=== PATIENT | female | born 1995 | race Caucasian/White ===

== ENCOUNTER → 2018-03-13 | Outpatient (CLI) | payer OTHER, BC | LOC: M LRY 14:31 | PROVIDERS: ATTEND Physician Assistant | DX: J01.10 Acute frontal sinusitis, unspecified (principal); Z53.8 Procedure and treatment not carried out for other reasons ==

== ENCOUNTER 2022-10-15 12:47 | Emergency (ER) | payer BC, OTHER ==
[~2022-10-15] VITALS: Ht 167.6 cm; Wt 64.7 kg
[2022-10-15] MEDS ORDERED: PREN1CHW6 PO (13:02)
[2022-10-15 13:27] LABS: BASO % 0.6 % (0.0-1.0); EOS # 0.1 10^3/uL (0.0-0.5); EOS % 1.1 % (0.0-3.0); HEMATOCRIT 46.7 % (36.0-47.0); HEMOGLOBIN 15.7 g/dl (12.0-15.5); LYMPH # 0.6 10^3/uL (1.5-5.0); LYMPH % 11.2 % (24.0-44.0); MEAN CORPUSCULAR HEMOGLOBIN 30.7 pg (27.0-33.0); MEAN CORPUSCULAR HGB CONC 33.6 g/dl (32.0-36.5); MEAN CORPUSCULAR VOLUME 91.2 fl (80.0-96.0); MONO # 0.4 10^3/uL (0.0-0.8); MONO % 7.6 % (2.0-8.0); NEUTROPHILS # 4.3 10^3/uL (1.5-8.5); NEUTROPHILS % 79.1 % (36.0-66.0); PLATELET COUNT, AUTOMATED 218 10^3/uL (150-450); RED BLOOD COUNT 5.12 10^6/uL (4.00-5.40); WHITE BLOOD COUNT 5.4 10^3/uL (4.0-10.0)
[2022-10-15 13:48] LABS: LIPASE 35 U/L (12-53)
[2022-10-15 13:50] LABS: ALBUMIN 4.2 G/DL (3.2-5.2); ALKALINE PHOSPHATASE 80 U/L (46-116); ALT/SGPT 45 U/L (7.0-40); AST/SGOT 15 U/L (<34); BILIRUBIN,TOTAL 3.1 MG/DL (0.3-1.2); BLOOD UREA NITROGEN 10 MG/DL (9-23); CALCIUM LEVEL 8.9 MG/DL (8.5-10.1); CARBON DIOXIDE LEVEL 24 MMOL/L (20-31); CHLORIDE LEVEL 104 MMOL/L (98-107); CREATININE FOR GFR 0.63 MG/DL (0.55-1.30); GLOMERULAR FILTRATION RATE > 60.0 (>60); GLUCOSE, FASTING 108 MG/DL (60-100); POTASSIUM SERUM 3.6 MMOL/L (3.5-5.1); SODIUM LEVEL 138 MMOL/L (136-145); TOTAL PROTEIN 7.4 G/DL (5.7-8.2)
[2022-10-15 14:24] LABS: HCG, SERUM QUANTITATIVE 66476.2 MIU/ML (<4.2)
[2022-10-15] MEDS ORDERED: METOCLOPRAMIDE INJ 10MG/2ML VIAL IV ONE (16:25)
[2022-10-15 18:02] LABS: GC DNA AMPLIFICATION NEGATIVE (NEGATIVE)
[2022-10-15] MEDS ORDERED: REGL10TA6 PO (18:24)
[2022-10-15] MEDS ORDERED: MONI4CRE3 PV (18:24)
[2022-10-15 18:58] VITALS: BP 104/58; TEMP 97.7; O2SAT 99
== END 2022-10-15 18:59 | disposition home or self-care (01) ==
LOC: M ED 12:47
DX: O20.0 Threatened abortion (principal); O21.0 Mild hyperemesis gravidarum; O23.591 Infection of other part of genital tract in pregnancy, first trimester; Z3A.01 Less than 8 weeks gestation of pregnancy
CPT/HCPCS: 76801; 80048; 80076; 81001; 83690; 84702; 85025; 86850; 86900; 86901; 87210; 87661; 87810; 87850; 93976; 96374; 99283; J2765